=== PATIENT | female | born 1940 | race Caucasian/White ===

== ENCOUNTER → 2016-12-31 | Outpatient (CLI) | payer MEDICARE ==
[~2016-12-31] VITALS: Ht 162.6 cm; Wt 113.0 kg
[~2016-12-31] MED LIST: ACETAMINOPHEN 325 MG TABLET PO PRN; ALBUTEROL SULFATE 2.5 MG/3 ML NPPB PRN; AMLO10TA2 PO; BUPIVACAINE/PF 0.5% ONE; BUPIVACAINE/PF-EPI 0.5% 1:200K ONE; CEFAZOLIN PMX 1GM/50ML 50 ML IV ONE; CHOL500050 PO; CLINDAMYCIN 150 MG/ML, 6ML ONE; CYCL5TAB PO; EPHEDRINE 50 MG/ML, 1ML IVPush PRN; FENTANYL PF 100 MCG/2ML IV PRN; FENTANYL PF 250 MCG/5ML ONE; FURO20TA3 PO; GABA600T2 PO; HYDROmorphone 1 MG/ML, 1ML IV PRN; LABETALOL 5MG/ML, 20ML IV PRN; LACTATED RINGERS 1,000 ML IV SCH; LEVO175T5 PO; LIDOCAINE 0.5%-EPI 1:200K, 50ML ONE; LISI5TAB7 PO; MELO15TA24 PO; METOPROLOL 1 MG/ML, 5ML IV PRN; MIRA50TA PO; NEBI10TA3 PO; NEOSPORIN OINT, 15GM ONE; NITR50CA PO; OLAN20TA3 PO; OMEP-110 PO; ONDANSETRON 2MG/ML, 2ML IVPush PRN; OXYcodone 5 MG/5 ML ORAL.SOL UDC PO PRN; PHARMACOKINETIC CONSULTATION MC ONE; PILO5TAB PO; PLEASE ENTER ALLERGIES MC SCH; PLEASE ENTER HEIGHT AND WEIGHT MC SCH; SITA1TAB5 PO; TAPE50TA11 PO; VANCOMYCIN 2,000 MG in SODIUM CHLORIDE 0.9% 500 ML IV ONE; VENL150T PO; hydrALAzine 20 MG/ML, 1ML IV PRN
[2016-12-31 13:46] VITALS: BP 117/65
[2016-12-31 13:55] VITALS: BP 117/65
== END | disposition home or self-care (01) ==
LOC: OUT 07:00 → UNDOADMIN 13:24 → ORIP 13:24 → UNDODISIN 13:46 → EDSTATUS 16:00
PROVIDERS: ATTEND Orthopaedic Surgery
DX: Z01.810 Encounter for preprocedural cardiovascular examination (principal); R94.31 Abnormal electrocardiogram [ECG] [EKG]
CPT/HCPCS: 93005; J3010; J3490